=== PATIENT | female | born 1980 | race Caucasian/White ===

== ENCOUNTER 2018-11-15 13:17 | Emergency (ER) | payer MEDICAID, OTHER ==
[~2018-11-15] VITALS: Wt 65.1 kg
[~2018-11-15 13:17] MED LIST: DIPH25CA6 PO
[2018-11-15] MEDS ORDERED: CEPH-443 PO (16:38)
[2018-11-15] MEDS ORDERED: ACET500C5 PO (16:38)
[2018-11-15 16:53] VITALS: BP 113/56; PULSE 67; RESP 16
--- NOTE | 2018-11-15 17:41 | ERD ---
ER Documentation Chief Complaint Chief Complaint clinic ref: no heart tones. 7w2d . no VB/ discharge, no pain. HPI 38-year-old female patient with no significant past medical history presents to the ED for not having heart tones noted on her ultrasound. Patient presents to the ED for further evaluation. States that her DETAIL TECHNICIAN is Dr. Acevedo. Reports her last medication is on September 07, 2018. Denies any chest pain, shortness breath, nausea, vomiting, diarrhea, vaginal bleeding, vaginal discharge, dysuria. Reports that she is a G4, P1 a 2. States that her last menstruation is on September 07, 2017. ROS All systems reviewed and are negative except as per history of present illness. Medications Home Meds Active Scripts Cephalexin* (Keflex*) 500 Mg Capsule, 500 MG PO QID for 7 Days, CAP Prov:DIETER ORTIZ PA-C 11/15/18 Acetaminophen* (Tylophen*) 500 Mg Capsule, 1 CAP PO Q6H PRN for PAIN AND OR ELEVATED TEMP, #20 CAP Prov:DIETER ORTIZ PA-C 11/15/18 Reported Medications Diphenhydramine Hcl (Benadryl) 25 Mg Cap, PO Q6 08/15/11 Allergies Allergies: Coded Allergies: No Known Allergy (Verified , 11/15/18) PMhx/Soc History of Surgery: Yes (LEFT ARM, APPENDECTOMY) Anesthesia Reaction: No Hx Neurological Disorder: No Hx Respiratory Disorders: No Hx Cardiac Disorders: No Hx Psychiatric Problems: No Hx Miscellaneous Medical Probl: No Hx Alcohol Use: Yes (ONCE IN A WHILE) Hx Substance Use: No Hx Tobacco Use: No Smoking Status: Never smoker FmHx Family History: No diabetes, No coronary disease Physical Exam Vitals Vital Signs Date Temp Pulse Resp B/P (MAP) Pulse Ox O2 O2 Flow FiO2 Time Delivery Rate 11/15/18 98.7 67 16 113/56 100 Room Air 16:53 (75) 11/15/18 99.2 70 16 116/66 100 13:23 (83) Physical Exam Const: [id number], well-nourished. In no acute distress. Head: Atraumatic, normocephalic Eyes: Normal Conjunctiva without injection. No purulent discharge. ENT: Normal external ear, nose. Moist oropharynx without tonsillar exudates. Non-erythematous pharynx. Uvula midline. No drooling. No trismus. Neck: No cervical midline tenderness. Full range of motion. No meningismus. No cervical lymphadenopathy. No JVD. Resp: Clear to auscultation bilaterally. No wheezing, rhonchi, rales, or crackles. No accessory muscle use. No retractions. Cardio: Regular rate and rhythm. No murmurs, rubs or gallops. Abd: Soft, nontender, non distended. Normal bowel sounds. No palpable masses. No rebound tenderness. No guarding. Negative McBurney's point. Negative psoas sign. Negative obturator sign. Skin: No petechiae or rashes Back: No midline tenderness. No CVA tenderness. Ext: No cyanosis, or edema. Neur: Awake and alert. Normal gait. Normal coordination. Psych: Normal Mood and Affect Results 24 hrs Laboratory Tests Test 11/15/18 14:03 Urine Color YELLOW Urine Clarity SLIGHTLY CLOUDY Urine pH 5.0 Urine Specific [place] 1.006 Urine Ketones TRACE mg/dL Urine Nitrite NEGATIVE mg/dL Urine Bilirubin NEGATIVE mg/dL Urine Urobilinogen NEGATIVE mg/dL Urine Leukocyte Esterase NEGATIVE Adarsh/ul Urine Microscopic RBC 0 /HPF Urine Microscopic WBC 0 /HPF Urine Bacteria FEW /HPF Urine Hemoglobin NEGATIVE mg/dL Urine Glucose NEGATIVE mg/dL Urine Total Protein NEGATIVE mg/dl Beta HCG, Quantitative 80459.0 mIU/ml Procedures/MDM 38-year-old female patient with no significant past medical history presents to ED complaining of having a heart tones on her [facility] today. Patient is afebrile and nontoxic-appearing. Urinalysis, beta hCG and ultrasound was ordered to further evaluate patient. Patient does not complain of any vaginal bleeding. Urinalysis showed few bacteria. IMPRESSION: 1. Failed at 7 weeks 3 days gestational age. beta Hc Patient's bleeding symptoms have stabilized while in the department. Failed noted on ultrasound. Low suspicion for symptomatic anemia, ectopic , sepsis, PID, appendicitis, ovarian torsion, tubo-ovarian abscess, surgical abdomen, or other emergent conditions. Patient was educated that there is a risk for threatened . Patient to follow up with DETAIL TECHNICIAN in 2 days for further evaluation and treatment. Patient is to return sooner to the ED for any worsening symptoms. Patient's questions were answered. Patient understood and agreed with discharge plan. Diagnosis: Miscarriage Discharge medications: Keflex, Tylenol Follow up with primary care physician in 1-2 days. Instructed patient to return to the ED sooner for any worsening symptoms. Patient's questions were answered. Patient is hemodynamically stable. Patient understood and agreed with discharge plan. Patient discharged stable. Disclaimer: Inadvertent spelling and grammatical errors are likely due to EHR/dictation software use and do not reflect on the overall quality of patient care. Also, please note that the electronic time recorded on this note does not necessarily reflect the actual time of the patient encounter. Departure Diagnosis: Primary Impression: Miscarriage Condition: Stable Patient Instructions: Urinary Tract Infections in Women, Miscarriage Referrals: [facility] YOU HAVE RECEIVED A MEDICAL SCREENING EXAM AND THE RESULTS INDICATE THAT YOU DO NOT HAVE A CONDITION THAT REQUIRES URGENT TREATMENT IN THE EMERGENCY DEPARTMENT. FURTHER EVALUATION AND TREATMENT OF YOUR CONDITION CAN WAIT UNTIL YOU ARE SEEN IN YOUR DOCTORS OFFICE WITHIN THE NEXT 1-2 DAYS. IT IS YOUR RESPONSIBILITY TO MAKE AN APPOINTMENT FOR FOLOW-UP CARE. IF YOU HAVE A PRIMARY DOCTOR --you should call your primary doctor and schedule an appointment IF YOU DO NOT HAVE A PRIMARY DOCTOR YOU CAN CALL OUR PHYSICIAN REFERRAL HOTLINE AT IF YOU CAN NOT AFFORD TO SEE A PHYSICIAN YOU CAN CHOSE FROM THE FOLLOWING [facility] [address] [facility]. [facility] [address] [facility] [address] [facility] [address] [facility] [facility] [address] [facility]. [facility]. [address] [facility]. [facility] YOU HAVE RECEIVED A MEDICAL SCREENING EXAM AND THE RESULTS INDICATE THAT YOU DO NOT HAVE A CONDITION THAT REQUIRES URGENT TREATMENT IN THE EMERGENCY DEPARTMENT. FURTHER EVALUATION AND TREATMENT OF YOUR CONDITION CAN WAIT UNTIL YOU ARE SEEN IN YOUR DOCTORS OFFICE WITHIN THE NEXT 1-2 DAYS. IT IS YOUR RESPONSIBILITY TO MAKE AN APPOINTMENT FOR FOLOW-UP CARE. IF YOU HAVE A PRIMARY DOCTOR --you should call your primary doctor and schedule and appointment IF YOU DO NOT HAVE A PRIMARY DOCTOR YOU CAN CALL OUR PHYSICIAN REFERRAL HOTLINE AT . IF YOU CAN NOT AFFORD TO SEE A PHYSICIAN YOU CAN CHOSE FROM THE FOLLOWING [facility] INSTITUTIONS: [facility] [address] [place] [address] [facility] [address] [place], [place] [id number] [place] [address] [address] [place] [address] [facility]ENT [facility]/SPECIALTIES Additional Instructions: Call your DETAIL TECHNICIAN TOMORROW for an appointment during the next 2-3 days.See the doctor sooner or return here if your condition worsens before your appointment time. DIETER ORTIZ PA-C November 15, 2018 17:41
== END 2018-11-15 16:55 | disposition home or self-care (01) ==
LOC: FTE 13:17
DX: O03.9 Complete or unspecified spontaneous abortion without complication (principal)
CPT/HCPCS: 36415; 76801; 76817; 81001; 84702; Z7502; 81003

== ENCOUNTER 2018-11-22 07:13 | Observation (INO) | payer MEDICAID ==
[~2018-11-22] VITALS: Ht 160 cm; Wt 65.3 kg
[2018-11-22] VITALS (16 sets, daily range): BP systolic 101–110; BP diastolic 57–67; PULSE 58–68; RESP 13–39; Ht 160 cm; Wt 65.3 kg
[~2018-11-22 07:13] MED LIST changes: +ACET500C5 PO; +CEPH-443 PO
[2018-11-22] MEDS ORDERED: ONDANSETRON (ODT) 4 MG TAB ODT STA (08:03)
[2018-11-22] MEDS ORDERED: HYDROCODONE/APAP (5/325) TAB PO ONE (08:30)
[2018-11-22] MEDS ORDERED: ONDANSETRON 4 MG INJ IV PRN ×2 (13:00→20:00)
[2018-11-22] MEDS ORDERED: ACETAMINOPHEN 325 MG TAB PO PRN (13:00)
--- NOTE | 2018-11-22 13:00 | QN ---
Documentation Comment Ms. Zaragoza is spoke with Dr. Biggs who is planning to take the patient to the operating room for D&C. Will place admission orders for observation while the patient is awaiting transfer to the operating room. BRIGITTE OLIVEIRA MD November 22, 2018 13:00
--- NOTE | 2018-11-22 15:19 | ERD ---
ER Documentation Chief Complaint Chief Complaint pelvic pain and vaginal bleeding X last night HPI 38-year-old female presenting with pelvic pain and vaginal bleeding. Patient states that she has had a significant vaginal bleeding last night. Patient was diagnosed a week and a half ago with a demise. She was seen at her OB /DAIRY CHEMIST's office yesterday and told her come to the ER if abdominal pain began or worsened. Patient states that currently she is not bleeding. A4. Denies medical problems. NKDA. Surgical history appendectomy, arm surgery and breast augmentation. Social history denies ROS All systems reviewed and are negative except as per history of present illness. Medications Home Meds Active Scripts Cephalexin* (Keflex*) 500 Mg Capsule, 500 MG PO QID for 7 Days, CAP Prov:DIETER ORTIZ PA-C 11/15/18 Acetaminophen* (Tylophen*) 500 Mg Capsule, 1 CAP PO Q6H PRN for PAIN AND OR ELEVATED TEMP, #20 CAP Prov:DIETER ORTIZ PA-C 11/15/18 Reported Medications Diphenhydramine Hcl (Benadryl) 25 Mg Cap, PO Q6 08/15/11 Allergies Allergies: Coded Allergies: No Known Allergy (Verified , 11/15/18) PMhx/Soc History of Surgery: Yes (LEFT ARM, APPENDECTOMY) Anesthesia Reaction: No Hx Neurological Disorder: No Hx Respiratory Disorders: No Hx Cardiac Disorders: No Hx Psychiatric Problems: No Hx Miscellaneous Medical Probl: No Hx Alcohol Use: Yes (rarely) Hx Substance Use: No Hx Tobacco Use: No Smoking Status: Never smoker FmHx Family History: No diabetes, No coronary disease, No other Physical Exam Vitals Vital Signs Date Temp Pulse Resp B/P (MAP) Pulse Ox O2 O2 Flow FiO2 Time Delivery Rate 11/22/18 99.0 70 18 106/53 99 07:14 (70) Physical Exam GENERAL: The patient is well-appearing, well-nourished, in no acute distress CHEST: Clear to auscultation bilaterally. There are no rales, wheezes or rhonchi. HEART: Regular rate and rhythm. No murmurs, clicks, rubs or gallops. No S3 or S4. ABDOMEN:Soft, nontender and nondistended. Good bowel sounds. No rebound or guarding. No gross peritonitis. No gross organomegaly or masses. BACK: No midline or flank tenderness. : Loss closed. No bleeding noted within the pelvic vault. No CMT. Result Diagram: 11/22/18 0751 Results 24 hrs Laboratory Tests Test 11/22/18 07:51 White Blood Count 5.5 10^3/ul Red Blood Count 4.17 10^6/ul Hemoglobin 12.4 g/dl Hematocrit 37.4 % Mean Corpuscular Volume 89.7 fl Mean Corpuscular Hemoglobin 29.7 pg Mean Corpuscular Hemoglobin Concent 33.2 g/dl Red Cell Distribution Width 11.9 % Platelet Count 280 10^3/UL Mean Platelet Volume 9.4 fl Immature Granulocytes % 0.500 % Neutrophils % 45.2 % Lymphocytes % 42.4 % Monocytes % 9.4 % Eosinophils % 1.8 % Basophils % 0.7 % Nucleated Red Blood Cells % 0.0 /100WBC Immature Granulocytes # 0.030 10^3/ul Neutrophils # 2.5 10^3/ul Lymphocytes # 2.4 10^3/ul Monocytes # 0.5 10^3/ul Eosinophils # 0.1 10^3/ul Basophils # 0.0 10^3/ul Nucleated Red Blood Cells # 0.0 10^3/ul Urine Color YELLOW Urine Clarity SLIGHTLY CLOUDY Urine pH 6.0 Urine Specific [place] 1.025 Urine Ketones NEGATIVE mg/dL Urine Nitrite NEGATIVE mg/dL Urine Bilirubin NEGATIVE mg/dL Urine Urobilinogen NEGATIVE mg/dL Urine Leukocyte Esterase TRACE Adarsh/ul Urine Microscopic RBC 1 /HPF Urine Microscopic WBC 2 /HPF Urine Squamous Epithelial Cells FEW /HPF Urine Bacteria FEW /HPF Urine Mucus FEW /HPF Urine Hemoglobin NEGATIVE mg/dL Urine Glucose NEGATIVE mg/dL Urine Total Protein NEGATIVE mg/dl Beta HCG, Quantitative 58901.0 mIU/ml Current Medications Medications Dose Sig/Olinda Start Time Status Last (Trade) Ordered Route PRN Stop Time Admin Dose Reason Admin 1 tab ONCE ONCE 11/22/18 DC 11/22/18 Acetaminophen PO 08:30 08:19 / 11/22/18 08:31 Hydrocodone Bitart ([place] (5/325)) Ondansetron 4 mg ONCE STAT 11/22/18 DC 11/22/18 HCl (Zofran ODT 08:03 08:19 Odt) 11/22/18 08:04 Ondansetron 4 mg BRIDGE ORDER 11/22/18 HCl (Zofran PRN IV 13:00 Inj) NAUSEA/VOMITI 11/23/18 12:59 NG 650 mg ER BRIDGE 11/22/18 Acetaminophen PRN PO 13:00 (Tylenol .MILD PAIN 11/23/18 12:59 Tab) 1-3 OR TEMP Procedures/MDM DIAGNOSTIC IMAGING REPORT Patient: LESTER CARLTON : 1980 Age: 38 Sex: F MR #: [id number] DOS: 11/22/18 0734 Ordering MD: HEATHER HENLEY PA-C Location: [facility] Room/Bed: PROCEDURE: US OB Transabd 1St Tri CLINICAL INDICATION: . Vaginal bleeding. No heart tone. TECHNIQUE: Sonographic imaging of the pelvis was performed using transabdominal and transvaginal techniques. Grayscale and color Doppler was utilized. COMPARISON: November 15, 2018. FINDINGS: UTERUS: Measures 9.5 x 5.5 x 6.3 cm with single intrauterine identified. Yolk sac is present. MEASUREMENTS [place] Length: 1.15 cm, 7 weeks 2 days +/- 1 week Mean Gestational Sac Diameter: 2.52 cm, 7 weeks 3 days +/- 1 week Average Gestational Age By Ultrasound: 7 weeks 3 days +/- 4 days LMP estimated gestational age: 10 weeks 6 days AUA estimated date of delivery: July 08, 2019 Heart Rate: Not identified. RIGHT OVARY: Measures 3.2 x 2.4 x 2.7 cm with presumed corpus luteal cyst again seen measuring 1.6 x 1.4 cm. Parenchymal vascular flow is demonstrated.. LEFT OVARY: Measures 2.7 x 1.5 x 2.2 cm without appreciated abnormality. Vascular flow is demonstrated. FREE FLUID: None. IMPRESSION: 1. Single intrauterine is again seen without identified heart rate. 2. Average gestational age by ultrasound is 7 weeks 3 days +/- 0.4 days gestation which is similar to the ultrasound from 1 week before and delayed compared to the gestational age by last menstrual period of 10 weeks 6 days. 3. demise may be considered. Consider follow-up Beta HCG and ultrasound as warranted. ER Course: Patient requires a D&C. Dr. Biggs is patient's MANAGER VALIDATION. She is consulted and will take patient to the OR. Patient is admitted wall over time is pending. Patient is stable at the time of admission. MDM: 38-year-old female presenting with findings consistent with demise. I have low suspicion for acute abdominal emergency. Patient will be admitted for D&C as patient is not passing the fetus on its own. Patient has had findings of demise for the last 2 weeks. Patient is stable at the time of admission. Departure Condition: Stable Patient Instructions: Miscarriage (Incomplete) POOL HENLEY PA-C November 22, 2018 15:19
[2018-11-22] MEDS ORDERED: MISOPROSTOL 50 MCG CAPSULE PR ONE (19:30)
[2018-11-22] MEDS ORDERED: PROPOFOL 20 ML ONE (19:33)
[2018-11-22] MEDS ORDERED: MIDAZOLAM 1 MG/ML 2 ML INJ ONE (19:33)
[2018-11-22] MEDS ORDERED: FENTAnyl 50 MCG/ML VIAL ONE (19:33)
[2018-11-22] MEDS ORDERED: ONDANSETRON 4 MG INJ ONE (19:36)
--- NOTE | 2018-11-22 19:37 | HP ---
Date/Time of Note Date/Time of Note DATE: 11/22/18 TIME: 19:29 Assessment/Plan VTE Prophylaxis SCD applied (from Nsg): Yes Pharmacological prophylaxis: other (She is ambulating and no need for phar macological prophylaxis) Lines/Catheters IV Catheter Type (from Nrsg): Saline Lock Assessment/Plan Assessment/Plan 38 years old 4 para 1-0-2-1 with missed . Treatment options including expectant management, medical treatment with Cytotec and dilation with suction curettaged discussed in detail with patient and her partner. Both expressed understanding. She would like to have dilation with suction curettage. Risks including but not limited to bleeding, infection, uterine perforation, injury to other organs, bowel, bladder, ureter, vessel and nerves if uterine perforation occurs, blood transfusion, blood transfusion transfusion- related infection, scar formation, risk of anesthesia and other indicated surg lizette were discussed in detail with the patient and her partner. Both expressed understanding. All of the questions were answered. She signed the informed consent Result Diagram: 11/22/18 0751 Results 24hrs Laboratory Tests Test 11/22/18 07:51 White Blood Count 5.5 Red Blood Count 4.17 L Hemoglobin 12.4 Hematocrit 37.4 Mean Corpuscular Volume 89.7 Mean Corpuscular Hemoglobin 29.7 Mean Corpuscular Hemoglobin Concent 33.2 Red Cell Distribution Width 11.9 Platelet Count 280 Mean Platelet Volume 9.4 Immature Granulocytes % 0.500 H Neutrophils % 45.2 Lymphocytes % 42.4 Monocytes % 9.4 Eosinophils % 1.8 Basophils % 0.7 Nucleated Red Blood Cells % 0.0 Immature Granulocytes # 0.030 Neutrophils # 2.5 Lymphocytes # 2.4 Monocytes # 0.5 Eosinophils # 0.1 Basophils # 0.0 Nucleated Red Blood Cells # 0.0 Urine Color YELLOW Urine Clarity SLIGHTLY CLOUDY A Urine pH 6.0 Urine Specific [place] 1.025 Urine Ketones NEGATIVE Urine Nitrite NEGATIVE Urine Bilirubin NEGATIVE Urine Urobilinogen NEGATIVE Urine Leukocyte Esterase TRACE A Urine Microscopic RBC 1 Urine Microscopic WBC 2 Urine Squamous Epithelial Cells FEW Urine Bacteria FEW A Urine Mucus FEW A Urine Hemoglobin NEGATIVE Urine Glucose NEGATIVE Urine Total Protein NEGATIVE Beta HCG, Quantitative 43167.0 HPI/ROS Admit Date/Time Admit Date/Time November 22, 2018 at 12:59 Hx of Present Illness 38 years old -0-2-1 presented to emergency department with complaint of vaginal bleeding and abdominal pain. She is a known case of missed , [facility] at [facility] [place] and the [facility] emergency department previously. She denies nausea, vomiting, shortness of breath, chest pain, headache, visual changes or LOF. PMH/Family/Social Past Medical History Medical History: no pertinent history Medications Current Medications Ondansetron HCl (Zofran Inj) 4 mg BRIDGE ORDER PRN IV NAUSEA/VOMITING; Start 11/22/18 at 13:00; Stop 11/23/18 at 12:59 Acetaminophen (Tylenol Tab) 650 mg ER BRIDGE PRN PO .MILD PAIN 1-3 OR TEMP; Start 11/22/18 at 13:00; Stop 11/23/18 at 12:59 Coded Allergies: No Known Allergy (Verified , 11/22/18) Past Surgical History Past Surgical Hx: no surgical history Family History Significant Family History: diabetes (Her mother) Social History Alcohol Use: none Smoking Status: Never smoker Drug Use: none Exam/Review of Systems Vital Signs Vitals Vital Signs Date Temp Pulse Resp B/P (MAP) Pulse Ox O2 O2 Flow FiO2 Time Delivery Rate 11/22/18 99.0 70 18 106/53 99 07:14 (70) Exam Constitutional: alert, oriented, well developed Psych: no complaints Neck: supple, non-tender Respiratory: clear to auscultation, normal air movement Cardiovascular: regular rate and rhythm, nl pulses Gastrointestinal: soft, nl liver, spleen, non-tender Genitourinary - Female: nl adnexae, nl external genitalia (Pelvic exam: External genitalia within normal limits. Vagina with brownish discharge. Cervix with no cervical motion tenderness, closed. Uterus 6weeks mobile nontender. Adnexa no palpable mass bilateral) Neurological: nl mental status, nl speech HADVELASQUEZ MIMS November 22, 2018 19:37
[2018-11-22] MEDS ORDERED: LIDOCAINE 1% (MDV) 20 ML INJ ONE (19:47)
--- NOTE | 2018-11-22 19:57 | PREAC ---
Date/Time of Note Date/Time of Note DATE: 11/22/18 TIME: 19:43 Anesthesia Eval and Record Evaluation Time Pre-Procedure Interview DATE: 11/22/18 TIME: 19:43 Age 38 Sex female NPO: 8 hrs Preoperative diagnosis missed Planned procedure D &C Past Medical History Past Medical History: None Surgery & Anesthesia Issues No known issue Meds Anticoagulation: No Beta Lesly within 24 hr: No Reason Beta Lesly not given: Other Discontinued Reported Medications Diphenhydramine Hcl (Benadryl) 25 Mg Cap, PO Q6 08/15/11 Discontinued Scripts Cephalexin* (Keflex*) 500 Mg Capsule, 500 MG PO QID for 7 Days, CAP Prov:DIETER ORTIZ PA-C 11/15/18 Acetaminophen* (Tylophen*) 500 Mg Capsule, 1 CAP PO Q6H PRN for PAIN AND OR ELEVATED TEMP, #20 CAP Prov:DIETER ORTIZ PA-C 11/15/18 Current Medications Ondansetron HCl (Zofran Inj) 4 mg BRIDGE ORDER PRN IV NAUSEA/VOMITING; Start 11/22/18 at 13:00; Stop 11/23/18 at 12:59 Acetaminophen (Tylenol Tab) 650 mg ER BRIDGE PRN PO .MILD PAIN 1-3 OR TEMP; Start 11/22/18 at 13:00; Stop 11/23/18 at 12:59 Meds reviewed: Yes Allergies Coded Allergies: No Known Allergy (Verified , 11/22/18) Allergies Reviewed: Yes Labs/Studies Labs Reviewed: Reviewed by anesthesiologist Result Diagram: 11/22/18 0751 Laboratory Tests 11/22/18 07:51 Blood Bank Test 11/22/18 07:51 Blood Type O POSITIVE test: Positive Pre-procedure Exam Last vitals Vital Signs Date Temp Pulse Resp B/P (MAP) Pulse Ox O2 O2 Flow FiO2 Time Delivery Rate 11/22/18 99.0 70 18 106/53 99 07:14 (70) Airway: Adequate mouth opening Mallampati: Mallampati I Teeth: Normal Lung: Normal Heart: Normal ASA Physical Status ASA physical status: 1 Emergency: None Planned Anesthetic General/MAC: Mask Pre-operative Attestations Prior to commencing anesthesia and surgery, the patient was re-evaluated, there was verification of: *The patient's identity *The results of appropriate recent lab work and preoperative vital signs *The above evaluation not changing prior to induction *Anesthetic plan, risk benefits, alternative and complications discussed with patient/family; questions answered; patient/family understands, accepts and wishes to proceed. SANTINO SALGADO MD November 22, 2018 19:54
[2018-11-22] MEDS ORDERED: EPHEDrine 25 MG/5 ML SYG IV PRN (20:00)
[2018-11-22] MEDS ORDERED: HYDROmorphONE 1 MG/5 ML IV SYRINGE IV PRN (20:00)
[2018-11-22] MEDS ORDERED: METOCLOPRAMIDE 10 MG INJ IV PRN (20:00)
[2018-11-22] MEDS ORDERED: hydrALAzine 20 MG INJ IV PRN (20:00)
[2018-11-22] MEDS ORDERED: LABETALOL HCL 20MG INJ IV PRN (20:00)
--- NOTE | 2018-11-22 20:19 | PAC ---
Date/Time of Note Date/Time of Note DATE: 11/22/18 TIME: 20:17 Post-Anesthesia Notes Post-Anesthesia Note Last documented vital signs Vital Signs Date Temp Pulse Resp B/P (MAP) Pulse Ox O2 O2 Flow FiO2 Time Delivery Rate 11/22/18 99.0 70 18 106/53 99 07:14 (70) Activity: WNL Respiratory function: WNL Cardiovascular function: WNL Mental status: Baseline Pain reasonably controlled: Yes Hydration appropriate: Yes Nausea/Vomiting absent: Yes SANTINO SALGADO MD November 22, 2018 20:19
--- NOTE | 2018-11-23 00:55 | OPR ---
Date/Time of Note Date/Time of Note DATE: 11/23/18 TIME: 00:45 Operative Report Procedure Date: November 22, 2018 Preoperative Diagnosis 38 years old 4 para 1-0-2-1 with missed . Postoperative Diagnosis 38 years old 4 para 1-0-2-1 with missed . Operation/Procedure Performed Dilation and suction curettaged Surgeon see signature line Manager Urology None Anesthesia Type: general Anesthesiologist: A Estimated Blood Loss: 50 - 100 ml's Transfusion none Specimen Products of conception Grafts/Implants none Tubes/Drains None Complications none Pt Condition Post Procedure: stable Disposition: PACU Procedure Description FINDINGS: Exam under anesthesia: External genitalia normal. Vagina with minimal brownish discharge. Cervix: Fingertip open, no lesions seen. Uterus: 8 weeks weeks, mobile, anteverted. Adnexa: No palpable mass, bilateral. INDICATION AND HISTORY: 38 years old -0-2-1 with missed . Treatment options including medic al treatment with Cytotec and dilation with suction curettage were discussed in detail with the patient and her partner. She would like to have dilation and suction curettage. Risks including but not limited to bleeding, infection, uterine perforation, injury to other organs, bowel, bladder, ureter, vessel and nerves if uterine perforation occurs, blood transfusion, blood transfusion transfusion-related infection, scar formation, risk of anesthesia and other indicated surgery were discussed in detail with the patient and her partner. Both expressed understanding. All of the questions were answered. She signed the informed consent. PROCEDURE IN DETAIL: The patient was identified and the procedure verified. She was given general anesthesia without difficulty and placed in a modified dorsal lithotomy. The patient was examined under general anesthesia as noted above. The patient was then prepped and draped in the normal sterile fashion. The bladder was drained by insertion of straight catheter. Then, a weighted speculum was used to visualize the cervix, which was grasped on anterior lip with a single tooth tenaculum. The cervix was finger tip open, was dilated more to #10. Then a #9 suction curettage was introduced into the uterine cavity. Suction curettage was performed in a 360-degree fashion until no further tissue was obtained. There was approximately 50 mL bleeding. Then a sharp curette was gently introduced into the uterine cavity until a gritty texture was felt in all 4 quadrants. Again, the suction curettage was introduced to remove the remaining clot and debris, no further tissue was obtained. The specimen was sent to pathology. Tenaculum was removed. There was no from tenaculum site. The speculum was removed. The patient tolerated the procedure well. She was extubated in the operating room and transferred to the recovery room in stable condition. VELASQUEZ ABURTO November 23, 2018 00:55
--- NOTE | 2018-11-23 01:15 | DS ---
Date/Time of Note Date/Time of Note DATE: 11/23/18 TIME: 01:12 Discharge Summary Admission/Discharge Info Admit Date/Time November 22, 2018 at 12:59 Discharge Date/Time 11/22/2018 Discharge Diagnosis Missed Patient Condition: Stable Procedures Dilation and suction curettage Hx of Present Illness 38 years old -0-2-1 presented to emergency department with complaint of vaginal bleeding and abdominal pain. She is a known case of missed , seen at [facility] [place] and the [facility] emergency department previously. She denies nausea, vomiting, shortness of breath, chest pain, headache, visual changes or LOF. Hospital Course The patient underwent dilation and suction curettaged for missed without any complication. She discharged home in stable condition with follow- up in 1 week. Blood type is Rh+ Home Meds Discontinued Reported Medications Diphenhydramine Hcl (Benadryl) 25 Mg Cap, PO Q6 08/15/11 Discontinued Scripts Cephalexin* (Keflex*) 500 Mg Capsule, 500 MG PO QID for 7 Days, CAP Prov:DIETER ORTIZ PA-C 11/15/18 Acetaminophen* (Tylophen*) 500 Mg Capsule, 1 CAP PO Q6H PRN for PAIN AND OR ELEVATED TEMP, #20 CAP Prov:DIETER ORTIZ PA-C 11/15/18 Primary Care Provider Not On Staff Doctor Time spent on discharge: > 30 minutes Pending Labs Laboratory Tests Test 11/22/18 07:51 White Blood Count 5.5 10^3/ul (4.8-10.8) Red Blood Count 4.17 10^6/ul (4.20-5.40) Hemoglobin 12.4 g/dl (12.0-16.0) Hematocrit 37.4 % (37.0-47.0) Mean Corpuscular Volume 89.7 fl (82.0-101.0) Mean Corpuscular Hemoglobin 29.7 pg (29.0-33.0) Mean Corpuscular Hemoglobin Concent 33.2 g/dl (32.0-37.0) Red Cell Distribution Width 11.9 % (11.5-14.5) Platelet Count 280 10^3/UL (140-415) Mean Platelet Volume 9.4 fl (7.4-10.4) Immature Granulocytes % 0.500 % (0.001-0.429) Neutrophils % 45.2 % (39.0-77.0) Lymphocytes % 42.4 % (15.0-51.0) Monocytes % 9.4 % (0.0-11.0) Eosinophils % 1.8 % (0.0-7.0) Basophils % 0.7 % (0.0-2.0) Nucleated Red Blood Cells % 0.0 /100WBC (0.0-0.0) Immature Granulocytes # 0.030 10^3/ul (0.0-0.031) Neutrophils # 2.5 10^3/ul (1.6-7.5) Lymphocytes # 2.4 10^3/ul (0.8-2.9) Monocytes # 0.5 10^3/ul (0.3-0.9) Eosinophils # 0.1 10^3/ul (0.0-0.5) Basophils # 0.0 10^3/ul (0.0-0.1) Nucleated Red Blood Cells # 0.0 10^3/ul (0.0-0.0) Urine Color YELLOW (YELLOW) Urine Clarity SLIGHTLY CLOUDY (CLEAR) Urine pH 6.0 (5.0-9.0) Urine Specific Ora 1.025 (1.003-1.030) Urine Ketones NEGATIVE mg/dL (NEGATIVE) Urine Nitrite NEGATIVE mg/dL (NEGATIVE) Urine Bilirubin NEGATIVE mg/dL (NEGATIVE) Urine Urobilinogen NEGATIVE mg/dL (NEGATIVE) Urine Leukocyte Esterase TRACE Adarsh/ul (NEGATIVE) Urine Microscopic RBC 1 /HPF (0-5) Urine Microscopic WBC 2 /HPF (0-5) Urine Squamous Epithelial Cells FEW /HPF (FEW) Urine Bacteria FEW /HPF (NONE SEEN) Urine Mucus FEW /HPF (NONE SEEN) Urine Hemoglobin NEGATIVE mg/dL (NEGATIVE) Urine Glucose NEGATIVE mg/dL (NEGATIVE) Urine Total Protein NEGATIVE mg/dl (NEGATIVE) Beta HCG, Quantitative 70704.0 mIU/ml VELASQUEZ ABURTO November 23, 2018 01:15
== END 2018-11-22 21:39 | disposition home or self-care (01) ==
LOC: FTE 07:13 → REC 12:59
PROVIDERS: ADMIT Obstetrics & Gynecology; ATTEND Obstetrics & Gynecology
DX: O02.1 Missed abortion (principal)
CPT/HCPCS: 36415; 59820; 76801; 76817; 81001; 84702; 85025; 86900; 86901; J2250; J2405; J3010; Z7500; Z7502; Z7512; Z7610; G0378

== ENCOUNTER 2018-11-26 01:28 | Emergency (ER) | payer MEDICAID ==
[~2018-11-26] VITALS: Ht 157.5 cm; Wt 65.0 kg
[2018-11-26 01:30] VITALS: Ht 157.5 cm; Wt 65.0 kg
[2018-11-26] MEDS ORDERED: morphine 4 MG/ML VIAL IV ONE (01:53)
[2018-11-26] MEDS ORDERED: ONDANSETRON 4 MG INJ IV ONE (01:55)
--- NOTE | 2018-11-26 04:45 | ERD ---
ER Documentation Chief Complaint Chief Complaint Pt reports DNC 3 days ago, c/o sever abd pain and foul discharge HPI This is a 38-year-old female with no significant past medical history previously at 9 weeks gestational age who had a recent dilation and curettage secondary to retained products of conception after a demise. The patient presents today for waxing and waning moderate suprapubic sharp cramping abdomi nal pain. The patient also endorses an occasional sensation of contractions, which she was concerned about. She does have mild vaginal spotting as well. She has not noticed any vaginal discharge. The patient has not had any fever or chills. She does not endorse any changes to bowel movements or urination. She has not had any dysuria or hematuria or urgency or frequency. She has not had any constipation or diarrhea. She does not endorse any black or bloody or tarry stools. The patient denies nausea or vomiting. The patient has had no headache or vision changes. The patient does not endorse neck or back pain. The patient denies lightheadedness or dizziness. The patient has had no chest pain or trouble breathing. The patient has had no focal deficits. The patient has had no weakness or numbness or tingling to the face or extremities. ROS All systems reviewed and are negative except as per history of present illness. Medications Home Meds Discontinued Reported Medications Diphenhydramine Hcl (Benadryl) 25 Mg Cap, PO Q6 08/15/11 Discontinued Scripts Cephalexin* (Keflex*) 500 Mg Capsule, 500 MG PO QID for 7 Days, CAP Prov:DIETER ORTIZ PA-C 11/15/18 Acetaminophen* (Tylophen*) 500 Mg Capsule, 1 CAP PO Q6H PRN for PAIN AND OR ELEVATED TEMP, #20 CAP Prov:DIETER ORTIZ PA-C 11/15/18 Allergies Allergies: Coded Allergies: No Known Allergy (Verified , 11/22/18) PMhx/Soc History of Surgery: Yes (LEFT ARM, APPENDECTOMY) Anesthesia Reaction: No Hx Neurological Disorder: No Hx Respiratory Disorders: No Hx Cardiac Disorders: No Hx Psychiatric Problems: No Hx Miscellaneous Medical Probl: No Hx Alcohol Use: Yes (rarely) Hx Substance Use: No Hx Tobacco Use: No Smoking Status: Never smoker FmHx Family History: No diabetes Physical Exam Vitals Vital Signs Date Temp Pulse Resp B/P (MAP) Pulse Ox O2 O2 Flow FiO2 Time Delivery Rate 11/26/18 98.3 60 16 109/64 100 Room Air 01:40 (79) 11/26/18 98.3 63 16 109/64 100 01:30 (79) Physical Exam Const: No acute distress Head: Atraumatic Eyes: Normal Conjunctiva ENT: Normal External Ears, Nose and Mouth. Neck: Full range of motion. No meningismus. Resp: Clear to auscultation bilaterally Cardio: Regular rate and rhythm, no murmurs Abd: Soft, non distended. Mild suprapubic tenderness. No guarding or rebound. No palpable uterus. Normal bowel sounds Skin: No petechiae or rashes Back: No midline or flank tenderness Ext: No cyanosis, or edema Neur: Awake and alert Psych: Normal Mood and Affect Result Diagram: 11/26/18 0154 Results 24 hrs Laboratory Tests Test 11/26/18 01:54 White Blood Count 7.2 10^3/ul Red Blood Count 4.00 10^6/ul Hemoglobin 12.2 g/dl Hematocrit 35.7 % Mean Corpuscular Volume 89.3 fl Mean Corpuscular Hemoglobin 30.5 pg Mean Corpuscular Hemoglobin Concent 34.2 g/dl Red Cell Distribution Width 11.7 % Platelet Count 308 10^3/UL Mean Platelet Volume 9.3 fl Immature Granulocytes % 0.400 % Neutrophils % 65.1 % Lymphocytes % 26.1 % Monocytes % 8.0 % Eosinophils % 0.1 % Basophils % 0.3 % Nucleated Red Blood Cells % 0.0 /100WBC Immature Granulocytes # 0.030 10^3/ul Neutrophils # 4.7 10^3/ul Lymphocytes # 1.9 10^3/ul Monocytes # 0.6 10^3/ul Eosinophils # 0.0 10^3/ul Basophils # 0.0 10^3/ul Nucleated Red Blood Cells # 0.0 10^3/ul Urine Color STRAW Urine Clarity SLIGHTLY CLOUDY Urine pH 6.0 Urine Specific [place] 1.006 Urine Ketones NEGATIVE mg/dL Urine Nitrite NEGATIVE mg/dL Urine Bilirubin NEGATIVE mg/dL Urine Urobilinogen NEGATIVE mg/dL Urine Leukocyte Esterase NEGATIVE Adarsh/ul Urine Microscopic RBC 2 /HPF Urine Microscopic WBC 0 /HPF Urine Squamous Epithelial Cells FEW /HPF Urine Bacteria FEW /HPF Urine Hemoglobin 2+ mg/dL Urine Glucose NEGATIVE mg/dL Urine Total Protein NEGATIVE mg/dl Beta HCG, Quantitative 1764.9 mIU/ml Current Medications Medications Dose Sig/Olinda Start Time Status Last (Trade) Ordered Route PRN Stop Time Admin Dose Reason Admin Morphine 4 mg ONCE ONCE 11/26/18 DC 11/26/18 Sulfate IV 01:53 01:59 (morphine) 11/26/18 01:55 Ondansetron 4 mg ONCE ONCE 11/26/18 DC 11/26/18 HCl (Zofran IV 01:55 01:59 Inj) 11/26/18 01:56 Procedures/MDM MDM The patient's presentation warrants further investigation. Previous medical records, if available, were reviewed. LABS The patient's laboratory testing was obtained and reviewed. No emergent treatment was required unless described below. CBC: No E/o systemic infection or severe anemia or thrombocytopenia Beta-hCG: Decreasing appropriately Urine: No E/o acute infection or hematuria IMAGING Imaging and Radiology interpretation reviewed. US Pelvis LAST MENSTRUAL PERIOD: 09/07/2018. UTERUS and GESTATIONAL SAC Uterus: The uterus measures 8.0 x 4.5 x 5.6 cm. Endometrium: 7 mm. OVARIES Right ovary: 3.2 x 1.7 x 2.3 cm Findings: There is Doppler flow to the right ovary.There is no ovarian lesion or cyst. Left ovary: 2.5 x 1.2 x 1.6 cm Findings: There is Doppler flow to the left ovary.There is no ovarian lesion or cyst. Cul-de-sac: There is no free fluid. IMPRESSION: 1. No products of conceptions. 2. Normal bilateral ovaries . 3. No adnexal mass or free fluid Electronically viewed and signed by Milena Eagle, Physician on 11/26/2018 04:27 TREATMENT/DISPOSITION The patient presents for persistent lower abdominal pain and occasional contractions with vaginal spotting a few days after a D&C was completed for demise. I do suspect that these are normal symptoms after a D&C. The patient's blood work is reassuring. The patient's hCG is decreasing appropriately. The patient's ultrasound does not reveal any new products of conception. I do not suspect endometritis or alternative infection. There is no evidence of a systemic infection. I do not feel the patient requires antibiotics at this time. The patient was treated with morphine and Zofran for symptom control. DISCHARGE Upon reevaluation of the patient, symptoms have improved. No emergent diagnoses were identified. At this time, I feel that the patient stable for discharge. The patient was instructed to follow-up with a primary care physician in 1-3 days. The patient will be given strict precautions with which to return to the emergency department. Disclaimer: Inadvertent spelling and grammatical errors are likely due to EHR/dictation software use and do not reflect on the overall quality of patient care. Note that the electronic time recorded on this note does not necessarily reflect the actual time of the patient encounter. Departure Diagnosis: Primary Impression: Suprapubic pain Additional Impressions: Status post D&C Uterine contractions Elevated serum hCG Condition: Stable Patient Instructions: Abdominal Pain, Dilation and Curettage Additional Instructions: Thank you for for coming to [facility] for your care today. Please ask your nurse or provider if you have questions about your care today and do not leave until all your questions have been answered. Please use any medications given as directed and follow-up with your doctor (or the doctor you were referred to) in the next 1-3 days. If you do not have a primary care doctor you may follow up at the [facility] (listed below). You may also use motrin and tylenol as needed for fever and/or pain unless instructed otherwise by your provider or nurse. Indications for more urgent follow-up have been discussed, but you may return to the Emergency Department at ANY time for any worrisome or worsening symptoms. If you have abdominal pain, please know that no test or exam you received is perfect and you should follow up within 8 hours for continued pain. If you had any imaging studies today, such as an X-Ray or CT Scan, these studies will be reviewed later by a radiologist. You will be called if there are important findings that were not identified today, so make sure the contact information you provided at registration is correct. If you received any narcotic pain control medicine today, such as Vicodin, Morphine or Dilaudid, your coordination and judgment may be affected for a number of hours. Please do not drive or operate heavy machinery, and you may want someone to assist you at home. If you were given a prescription for narcotic medication, be aware that it is very addictive- use sparingly and only if necessary. PLEASE SEEK FURTHER EVALUATION AND MANAGEMENT AT YOUR DOCTORS OFFICE WITHIN THE NEXT 1-3 DAYS. IT IS YOUR RESPONSIBILITY TO MAKE AN APPOINTMENT FOR FOLOW-UP CARE. IF YOU HAVE A PRIMARY DOCTOR, PLEASE CALL THEIR OFFICE TO SCHEDULE AN APPOINTMENT FOR FOLLOW UP. IF YOU DO NOT HAVE A PRIMARY DOCTOR YOU CAN CALL OUR PHYSICIAN REFERRAL HOTLINE AT IF YOU CAN NOT AFFORD TO SEE A PHYSICIAN YOU CAN CHOSE FROM THE FOLLOWING [facility]: [facility] [address] [facility] [address] [facility] [address] [facility] [address] [facility] [address] [facility] [facility]. [address] ERIKA LONDONO MD November 26, 2018 04:43
[2018-11-26 04:59] VITALS: BP 99/61; PULSE 74; RESP 18
== END 2018-11-26 05:05 | disposition home or self-care (01) ==
LOC: E/R 01:28
DX: R10.30 Lower abdominal pain, unspecified (principal); R89.1 Abnormal level of hormones in specimens from other organs, systems and tissues; Z87.59 Personal history of other complications of pregnancy, childbirth and the puerperium
CPT/HCPCS: 76801; 76817; 81001; 84702; 85025; 86900; 86901; J2270; J2405; 36415; 96374; 96375